=== PATIENT | female | born 1990 | race Caucasian/White ===

== ENCOUNTER 2018-07-24 21:37 | Emergency (ER) | payer OTHER ==
[~2018-07-24] VITALS: Ht 160 cm; Wt 59.0 kg
[~2018-07-24 21:37] MED LIST: NORCO 5-325 TA1 EACH PO; PROZAC20 MG PO
[2018-07-24] MEDS ORDERED: CIPROFLOXIN HC2.5 M1 OPHTHALMIC (22:51)
[2018-07-24 23:00] VITALS: BP 119/70
== END 2018-07-24 23:01 | disposition home or self-care (01) ==
LOC: M.ERS 21:37
DX: T15.91XA Foreign body on external eye, part unspecified, right eye, initial encounter (principal); F17.210 Nicotine dependence, cigarettes, uncomplicated; Z88.8 Allergy status to other drugs, medicaments and biological substances; X58.XXXA Exposure to other specified factors, initial encounter; Y93.89 Activity, other specified; Y92.89 Other specified places as the place of occurrence of the external cause; Y99.8 Other external cause status